=== PATIENT | female | born 1985 | race African-American/Black ===

== ENCOUNTER 2016-08-27 17:37 | Emergency (ER) | payer SELFPAY ==
[~2016-08-27 17:37] MED LIST: AMOXICILLIN PO; CHLOR-TRIMETON PO; CORTISPORIN-TC10 ML OT; E-MYCIN250 MG PO; IBUPROFEN PO; PEN-VEE K PO; PEPCID40 MG PO; PHENERGAN DM SYRUP PO; ULTRAM PO; ZANTAC PO
[2016-08-27 18:02] LABS: BLOOD UREA NITROGEN 13 mg/dL (9-23); BUN/CREATININE RATIO 16.25; CALCIUM SERUM 9.1 mg/dL (8.4-10.2); CARBON DIOXIDE 27 mmol/L (22-31); CHLORIDE 103 mmol/L (100-111); CREATININE SERUM 0.8 mg/dL (0.6-1.4); GLOM FILT RATE Estimated ABOVE60 mL/min (>60); GLUCOSE FASTING 76 mg/dL (70-110); POTASSIUM 3.8 mmol/L (3.5-5.1); SODIUM 134 mmol/L (135-145)
[2016-08-27 18:06] LABS: BASOPHIL# 0.1 X10e3 (0-0.3); BASOPHIL% 0.9 % (0-2.5); EOSINOPHIL# 0.1 X10e3 (0-0.7); EOSINOPHIL% 0.7 % (0.0-7.0); HEMATOCRIT 45.8 % (35.0-45.0); HEMOGLOBIN 15.2 gm/dL (12.0-16.0); LYMPHOCYTE# 2.8 X10e3 (1.0-3.5); LYMPHOCYTE% 23.5 % (17.0-45.0); MEAN CELL VOLUME 87.9 FL (83-96); MEAN CORPUSCULAR HEMOGLOBIN 29.1 PG (28-34); MEAN CORPUSCULAR HGB CONC 33.1 g/dL (30-36); MEAN PLATELET VOLUME 9.2 FL (6.5-11.5); MONOCYTE# 1.4 X10e3 (0-1.0); MONOCYTE% 11.9 % (3.0-12.0); NEUTROPHIL# 7.4 X10e3 (1.5-7.1); RED BLOOD COUNT 5.21 X10e (3.90-5.30); RED CELL DISTRIBUTION WIDTH 13.7 % (11.0-15.5); WHITE BLOOD COUNT 11.7 X10e3 (4.0-10.5)
[2016-08-27 18:21] LABS: DIFF IND NO; PLATELET COUNT 236 X10e3 (140-420)
== END 2016-08-27 19:00 | disposition home or self-care (01) ==
LOC: CFTX 17:37
PROVIDERS: Nurse Practitioner
DX: M79.605 Pain in left leg (principal); M79.604 Pain in right leg; F17.200 Nicotine dependence, unspecified, uncomplicated
CPT/HCPCS: 36415; 80048; 85025; 99283